=== PATIENT | male | born 1940 | race Caucasian/White ===

== ENCOUNTER 2018-10-14 07:28 | Inpatient (IN) | payer MEDICARE, BC ==
[2018-10-09 12:25] LABS: BASOPHILS % (AUTO) 0.4 % (0-1); EOSINOPHILS # (AUTO) 0.2 X10'3 (0-0.9); EOSINOPHILS % (AUTO) 3.3 % (0-6); LYMPHOCYTES # (AUTO) 1.1 X10'3 (1.1-4.8); LYMPHOCYTES % (AUTO) 16.9 % (21-51); MEAN CORPUSCULAR HEMOGLOBIN 32.5 PG (27.0-31.0); MEAN CORPUSCULAR HGB CONC 34.4 g/dL (33.0-36.5); MEAN CORPUSCULAR VOLUME 94.3 FL (78-98); MEAN PLATELET VOLUME 10.4 FL (7.4-10.4); MONOCYTES # (AUTO) 0.6 X10'3 (0-0.9); NEUTROPHILS # (AUTO) 4.5 X10'3 (1.8-7.7); NEUTROPHILS % (AUTO) 70.4 % (42-75); PRE OP HEMATOCRIT 38.4 % (42.0-52.0); PRE OP HEMOGLOBIN 13.2 g/dL (14.0-17.9); PRE OP PLATELET COUNT 161 X10'3 (140-440); RED BLOOD COUNT 4.07 X10'6 (4.70-6.10); RED CELL DISTRIBUTION WIDTH 13.1 % (11.5-14.5)
[2018-10-09 12:35] LABS: HEMOGLOBIN A1C 5.6 % (4.5-6.2)
[2018-10-09 12:42] LABS: ALBUMIN 3.8 G/DL (3.4-5.0); ALBUMIN/GLOBULIN RATIO 1.2 (1.1-1.5); ALKALINE PHOSPHATASE 68 IU/L (46-116); BLOOD UREA NITROGEN 16 MG/DL (7-18); BUN/CREATININE RATIO 16.7 (5.4-32.0); CHLORIDE 106 MMOL/L (99-107); CREATININE 0.96 MG/DL (0.60-1.10); PRE OP ALT 26 U/L (30-65); PRE OP ANION GAP 6 (8-16); PRE OP AST 16 U/L (10-37); PRE OP BILIRUB, TOTAL 0.5 MG/DL (0.0-1.0); PRE OP GLUCOSE 97 MG/DL (70-104); PRE OP POTASSIUM 4.7 MMOL/L (3.4-5.1); PRE OP SODIUM 139 MMOL/L (135-145); eGFR 76 ML/MIN
[2018-10-09 12:45] LABS: PRE OP PROTIME 10.6 SECONDS (9.0-12.0)
[~2018-10-14] VITALS: Ht 177.8 cm; Wt 99.8 kg
[2018-10-14] VITALS (25 sets, daily range): BP systolic 100–164; BP diastolic 44–75
[~2018-10-14 07:28] MED LIST: ASCO500C15 PO; ATEN50TA PO; BUPR150T8 PO; CALC-854 PO; CELE-193 PO; CHOL10002 PO; DONE10TA7 PO; ESOM20CA PO; FISH12002 PO; HYDROmorphone 1 mg/ml syringe IV PRN; MESSAGE TO PHARMACY PO ONE; METF500T20 PO; OXYB5TAB16 PO; SERT50TA PO; SIMV20TA5 PO; TERA5CAP4 PO; [UNRECOGNIZED DRUG - CODE] PO; acetaminophen 325mg tablet PO PRN; bisacodyl 10mg suppository rectal RC PRN; dextrose 50%-water 50ml dispensing syringe IV PRN; dextrose ORAL solution 15 GM/59 ML bottle PO PRN; diphenhydrAMINE 25mg capsule PO PRN; glucagon, human recombinant 1mg kit SUBCUT PRN; insulin Lispro (HumaLOG) vial - multi-dose SQ SCH; magnesium hydroxide 30ml (MOM) UD suspension PO PRN; ondansetron/PF 4mg/2ml inj IV PRN
[2018-10-14] MEDS ORDERED: gabapentin 300mg capsule PO SCH (08:00)
[2018-10-14] MEDS ORDERED: sertraline 50mg tablet PO SCH (08:00)
[2018-10-14] MEDS ORDERED: non-formulary drug (Esomeprazole Magnesium (Nexium) 1 CAP) PO SCH (08:00)
[2018-10-14] MEDS ORDERED: ringers solution, lacted 1,000 ML IV SCH ×2 (08:15→11:07)
[2018-10-14] MEDS ORDERED: famotidine 20mg tablet PO ONE (08:15)
[2018-10-14] MEDS ORDERED: gabapentin 300mg capsule PO ONE (08:15)
[2018-10-14] MEDS ORDERED: metoclopramide 5 mg/ml inj IV ONE (08:15)
[2018-10-14] MEDS ORDERED: celeCOXIB 100mg capsule PO ONE (08:15)
[2018-10-14] MEDS ORDERED: DOCUMENT DATE & TIME OF BETA-BLOCKER PO ONE (08:15)
[2018-10-14] MEDS ORDERED: vancomycin inj 1,500 MG in normal saline 300ml IV soln IV ONE (08:15)
[2018-10-14] MEDS ORDERED: tranexamic acid inj. 1,000 MG in normal saline 100 ML IV ONE (08:15)
[2018-10-14] MEDS ORDERED: cefazolin/dext.iso 2gm/100 ML IV ONE (08:15)
[2018-10-14] MEDS ORDERED: acetaminophen 325mg tablet PO ONE (08:15)
[2018-10-14] MEDS ORDERED: oxyCODONE SR 10mg (sust. release) tab -2 tabs (20mg) PO ONE (08:15)
[2018-10-14] MEDS ORDERED: vancomycin 1,000mg inj ONE (09:43)
[2018-10-14] MEDS ORDERED: cloNIDine hcl/PF 100mcg/ml inj ONE (09:43)
[2018-10-14] MEDS ORDERED: epiNEPHrine 1 mg/ml inj ONE (09:43)
[2018-10-14] MEDS ORDERED: ketorolac trometh. 30mg/ml inj. ONE (09:43)
[2018-10-14] MEDS ORDERED: ROPIVAcaine 0.5% (5mg/ml) 30ml vial ONE ×2 (09:43→10:04)
[2018-10-14] MEDS ORDERED: tetracaine 1% (10mg/ml) pres. free inj. ONE (10:04)
[2018-10-14] MEDS ORDERED: MIDAZolam 1mg/ml 10ml vial ONE (10:06)
[2018-10-14] MEDS ORDERED: fentaNYL/PF 50MCG/1 ML 2ML syringe ONE (10:06)
[2018-10-14] MEDS ORDERED: proCHLORperazine 10 MG/2 ml inj IV PRN (11:10)
[2018-10-14] MEDS ORDERED: morphine 4 MG/ML inj SYRINge IV PRN ×2 (11:10)
[2018-10-14] MEDS ORDERED: meperidine/PF 25mg/ml syringe IV PRN ×3 (11:10)
[2018-10-14] MEDS ORDERED: ondansetron/PF 4mg/2ml inj IV PRN (11:10)
--- NOTE | 2018-10-14 12:20 | NUR ---
ADMITTED TO PACU FROM OR ACCOMPANIED BY ANESTHESIA. INTIAL PHYSICAL ASSESSMENT DONE AND RECORDED. AWAKE AND RESPONSE ON ARRIVE YO PACU, REPORT RECEIVED FROM ANESTHESIA.
[2018-10-14] MEDS: ROPIVAcaine 0.2%/PF PAIN PUMP 550 ML IJ SCH ×2 (12:50→15:07)
--- NOTE | 2018-10-14 13:00 | NUR ---
DR. BOO CONTACTED RE SLOW PROGRESSION OF SPINAL AND COMPLAINTS OF AIR HUNGER. ORDERS RECEIVED, HHN GIVEN BY RESPIRATORY, WITH IMPROVEMENT. PLACED BACK ON NASAL CANNULA AFTER HHN AT 3 L/MIN. SPINAL LEVEL PROGRESSING
[2018-10-14] MEDS ORDERED: ipratropium/albuterol 3ml nebule NEB PRN (14:00)
--- NOTE | 2018-10-14 14:30 | NUR ---
PACU DISCHARGE CRITERIA MET, REPORT GIVEN TO FLOOR. DENIES PAIN OR DISCOMFORT, TRANSFERRED TO ROOM IN STABLE GOOD CONDITION. DR BOO NOTIFIED OF CURRENT STATUS, OK TO TRANSFER TO ROOM. SPINAL LEVEL AT L2 NO COMPLAINTS OF AIR HUNGER, OK TO TRANSFER TO ROOM PER DR. BOO.
[2018-10-14] MEDS ORDERED: tranexamic acid inj. 1,000 MG in normal saline 100ml IV soln 100 ML IV ONE (15:20)
[2018-10-14] MEDS: potassium cl 20mEq in 1/2 NS 1,000 ML IV SCH (15:46)
[2018-10-14] MEDS: cefazolin/dext.iso 2gm/100ml 100 ML IV SCH (15:46)
[2018-10-14] MEDS: oxyCODONE/APAP 10/325mg tablet PO PRN (19:20)
[2018-10-14] MEDS: ascorbic acid 500mg tablet PO SCH (19:20)
[2018-10-14] MEDS: gabapentin 300mg capsule PO SCH (20:45)
[2018-10-14] MEDS: terazosin 5mg capsule PO SCH (20:45)
[2018-10-14] MEDS: donepezil 5mg tablet PO SCH (20:46)
[2018-10-14] MEDS: sennosides 8.6mg tablet PO SCH (20:46)
[2018-10-14] MEDS: atorvastatin 10mg tablet PO SCH (20:46)
[2018-10-14] MEDS: oxybutynin 5mg tablet PO SCH (20:51)
[2018-10-14] MEDS ORDERED: non-formulary drug (Simvastatin* (Zocor*) 1 TAB) PO SCH (21:00)
[2018-10-14] MEDS ORDERED: non-formulary drug (Donepezil HCl (Aricept) 1 TAB) PO SCH (21:00)
[2018-10-14] MEDS: insulin glargine (Lantus) pen - multi-dose SQ SCH (21:00)
[2018-10-15] MEDS: cefazolin/dext.iso 2gm/100ml 100 ML IV SCH ×2 (00:56→08:09)
[2018-10-15 02:00] VITALS: BP 107/59
[2018-10-15] MEDS: potassium cl 20mEq in 1/2 NS 1,000 ML IV SCH ×4 (02:41→22:53)
[2018-10-15] MEDS: oxyCODONE/APAP 10/325mg tablet PO PRN ×4 (05:31→21:34)
--- NOTE | 2018-10-15 05:36 | NUR ---
F/C D/C'D PER PROTOCOL. PT TOLERATED WELL.
[2018-10-15 05:38] LABS: BASOPHILS % (AUTO) 0.3 % (0-1); EOSINOPHILS # (AUTO) 0.3 X10'3 (0-0.9); EOSINOPHILS % (AUTO) 4.1 % (0-6); HEMATOCRIT 30.8 % (42.0-52.0); HEMOGLOBIN 10.6 g/dl (14.0-17.9); LYMPHOCYTES # (AUTO) 0.7 X10'3 (1.1-4.8); LYMPHOCYTES % (AUTO) 9.9 % (21-51); MEAN CORPUSCULAR HEMOGLOBIN 32.8 PG (27.0-31.0); MEAN CORPUSCULAR HGB CONC 34.4 g/dL (33.0-36.5); MEAN CORPUSCULAR VOLUME 95.3 FL (78-98); MEAN PLATELET VOLUME 10.8 FL (7.4-10.4); MONOCYTES # (AUTO) 0.8 X10'3 (0-0.9); MONOCYTES % (AUTO) 10.9 % (2-12); NEUTROPHILS # (AUTO) 5.5 X10'3 (1.8-7.7); NEUTROPHILS % (AUTO) 74.8 % (42-75); PLATELET COUNT 115 X10'3 (140-440); RED BLOOD COUNT 3.23 X10'6 (4.70-6.10); RED CELL DISTRIBUTION WIDTH 12.9 % (11.5-14.5); WHITE BLOOD COUNT 7.4 X10'3 (4.5-11.0)
[2018-10-15 05:45] LABS: ANION GAP 6 (8-16); CHLORIDE 107 MMOL/L (99-107); POTASSIUM 4.5 MMOL/L (3.5-5.1); SODIUM 140 MMOL/L (135-145); TOTAL CARBON DIOXIDE 27.1 MMOL/L (24-32)
[2018-10-15 06:00] VITALS: BP 133/56
--- NOTE | 2018-10-15 06:07 | NUR ---
REPORT GIVEN TO AMRIK GUZMAN.
--- NOTE | 2018-10-15 06:20 | NUR ---
Patient in room ORTH[facility] 4024. I have received report from Marga ROWLEY and had the opportunity to ask questions and assume patient care.
[2018-10-15] MEDS: oxybutynin 5mg tablet PO SCH ×3 (08:04→21:25)
[2018-10-15] MEDS: gabapentin 300mg capsule PO SCH ×3 (08:05→21:27)
[2018-10-15] MEDS: pantoprazole 40mg Tablet.DR PO SCH (08:05)
[2018-10-15] MEDS: multivitamins, therapeutics tablet PO SCH (08:05)
[2018-10-15] MEDS: buPROPion SR 150mg tablet PO SCH (08:05)
[2018-10-15] MEDS: ascorbic acid 500mg tablet PO SCH ×2 (08:05→21:31)
[2018-10-15] MEDS: aspirin 325mg tablet PO SCH (08:06)
[2018-10-15] MEDS: sertraline 50mg tablet PO SCH (08:06)
[2018-10-15] MEDS: atenolol 50mg tablet PO SCH (08:06)
[2018-10-15 09:11] LABS: LARGE PLATELETS FEW; PLATELET ESTIMATE DECREASED
[2018-10-15 10:00] VITALS: BP 130/47
--- NOTE | 2018-10-15 10:53 | NUR ---
Joint replacement consult: Pt/SO seen by GEORGES for written/verbal high protein ed. RD reviewed high protein needs for wound healing, immune strength, high protein foods, and protein supplementation options. RD contact information provided in case of further questions. Pt declines additional proteins at this time. Will continue to monitor. Addendum: 10/15/18 at [address] Amended: Links added.
[2018-10-15 18:00] VITALS: BP 139/56
--- NOTE | 2018-10-15 18:12 | NUR ---
Problems reprioritized. Patient report given, questions answered & plan of care reviewed with Marga ROWLEY.
[2018-10-15] MEDS: insulin glargine (Lantus) pen - multi-dose SQ SCH (21:00)
[2018-10-15] MEDS: terazosin 5mg capsule PO SCH (21:25)
[2018-10-15] MEDS: sennosides 8.6mg tablet PO SCH (21:25)
[2018-10-15] MEDS: donepezil 5mg tablet PO SCH (21:25)
[2018-10-15] MEDS: atorvastatin 10mg tablet PO SCH (21:25)
[2018-10-15] MEDS: celeCOXIB 100mg capsule PO SCH (21:34)
[2018-10-15 22:00] VITALS: BP 156/62
[2018-10-16] MEDS: oxyCODONE/APAP 10/325mg tablet PO PRN ×3 (05:25→22:28)
[2018-10-16 05:58] LABS: BASOPHILS % (AUTO) 0.1 % (0-1); EOSINOPHILS # (AUTO) 0.4 X10'3 (0-0.9); EOSINOPHILS % (AUTO) 5.5 % (0-6); HEMATOCRIT 33.5 % (42.0-52.0); HEMOGLOBIN 11.6 g/dl (14.0-17.9); LYMPHOCYTES # (AUTO) 0.7 X10'3 (1.1-4.8); MEAN CORPUSCULAR HEMOGLOBIN 32.4 PG (27.0-31.0); MEAN CORPUSCULAR HGB CONC 34.5 g/dL (33.0-36.5); MEAN CORPUSCULAR VOLUME 93.9 FL (78-98); MEAN PLATELET VOLUME 10.2 FL (7.4-10.4); MONOCYTES # (AUTO) 0.9 X10'3 (0-0.9); MONOCYTES % (AUTO) 12.5 % (2-12); NEUTROPHILS % (AUTO) 71.9 % (42-75); PLATELET COUNT 129 X10'3 (140-440); RED BLOOD COUNT 3.57 X10'6 (4.70-6.10); RED CELL DISTRIBUTION WIDTH 13.1 % (11.5-14.5)
[2018-10-16 06:00] VITALS: BP 158/65
--- NOTE | 2018-10-16 06:25 | NUR ---
Patient in room ORTHO 4024. I have received report from Marga and had the opportunity to ask questions and assume patient care.
--- NOTE | 2018-10-16 06:28 | NUR ---
Report given to arthur Moreno.
[2018-10-16] MEDS: pantoprazole 40mg Tablet.DR PO SCH (08:50)
[2018-10-16] MEDS: oxybutynin 5mg tablet PO SCH ×3 (08:51→19:59)
[2018-10-16] MEDS: celeCOXIB 100mg capsule PO SCH ×2 (08:51→19:58)
[2018-10-16] MEDS: gabapentin 300mg capsule PO SCH ×3 (08:51→19:59)
[2018-10-16] MEDS: buPROPion SR 150mg tablet PO SCH (08:52)
[2018-10-16] MEDS: atenolol 50mg tablet PO SCH (08:52)
[2018-10-16] MEDS: ascorbic acid 500mg tablet PO SCH ×2 (08:52→19:58)
[2018-10-16] MEDS: multivitamins, therapeutics tablet PO SCH (08:52)
[2018-10-16] MEDS: aspirin 325mg tablet PO SCH (08:53)
[2018-10-16] MEDS: sertraline 50mg tablet PO SCH (08:53)
[2018-10-16 10:41] VITALS: BP 107/53
[2018-10-16] MEDS: ROPIVAcaine 0.2%/PF PAIN PUMP 550 ML IJ SCH (11:07)
[2018-10-16 18:00] VITALS: BP 143/56
--- NOTE | 2018-10-16 18:00 | NUR ---
Patient in room ORTHO 4024. I have received report from AMRIK Moreno and had the opportunity to ask questions and assume patient care.
--- NOTE | 2018-10-16 18:03 | NUR ---
Problems reprioritized. Patient report given, questions answered & plan of care reviewed with Linda.
[2018-10-16] MEDS: donepezil 5mg tablet PO SCH (19:58)
[2018-10-16] MEDS: atorvastatin 10mg tablet PO SCH (19:59)
[2018-10-16] MEDS: sennosides 8.6mg tablet PO SCH (19:59)
[2018-10-16] MEDS: terazosin 5mg capsule PO SCH (19:59)
[2018-10-16 20:02] VITALS: BP 158/70
[2018-10-16] MEDS: insulin glargine (Lantus) pen - multi-dose SQ SCH (21:00)
[2018-10-16 22:00] VITALS: BP 120/48
[2018-10-17] MEDS: oxyCODONE/APAP 10/325mg tablet PO PRN ×2 (05:20→10:41)
[2018-10-17 06:00] VITALS: BP 149/69
--- NOTE | 2018-10-17 06:00 | NUR ---
Patient in room ORTHO 4024. I have received report from Linda ROWLEY and had the opportunity to ask questions and assume patient care.
[2018-10-17 06:15] LABS: BASOPHILS % (AUTO) 0.1 % (0-1); EOSINOPHILS # (AUTO) 0.4 X10'3 (0-0.9); EOSINOPHILS % (AUTO) 5.2 % (0-6); HEMATOCRIT 32.2 % (42.0-52.0); LYMPHOCYTES # (AUTO) 0.7 X10'3 (1.1-4.8); LYMPHOCYTES % (AUTO) 8.8 % (21-51); MEAN CORPUSCULAR HEMOGLOBIN 32.6 PG (27.0-31.0); MEAN CORPUSCULAR HGB CONC 34.3 g/dL (33.0-36.5); MEAN CORPUSCULAR VOLUME 94.9 FL (78-98); MEAN PLATELET VOLUME 10.3 FL (7.4-10.4); MONOCYTES # (AUTO) 0.9 X10'3 (0-0.9); MONOCYTES % (AUTO) 11.3 % (2-12); NEUTROPHILS % (AUTO) 74.6 % (42-75); PLATELET COUNT 133 X10'3 (140-440); RED BLOOD COUNT 3.39 X10'6 (4.70-6.10); RED CELL DISTRIBUTION WIDTH 13.2 % (11.5-14.5)
--- NOTE | 2018-10-17 06:30 | NUR ---
Problems reprioritized. Patient report given, questions answered & plan of care reviewed with AMRIK Mark.
[2018-10-17] MEDS: oxybutynin 5mg tablet PO SCH (07:43)
[2018-10-17] MEDS: aspirin 325mg tablet PO SCH (07:43)
[2018-10-17] MEDS: atenolol 50mg tablet PO SCH (07:45)
[2018-10-17] MEDS: pantoprazole 40mg Tablet.DR PO SCH (07:45)
[2018-10-17] MEDS: buPROPion SR 150mg tablet PO SCH (07:45)
[2018-10-17] MEDS: gabapentin 300mg capsule PO SCH (07:45)
[2018-10-17] MEDS: ascorbic acid 500mg tablet PO SCH (07:45)
[2018-10-17] MEDS: multivitamins, therapeutics tablet PO SCH (07:45)
[2018-10-17] MEDS: celeCOXIB 100mg capsule PO SCH (07:45)
[2018-10-17] MEDS: sertraline 50mg tablet PO SCH (07:46)
[2018-10-17 10:00] VITALS: BP 126/51
--- NOTE | 2018-10-17 10:46 | NUR ---
Pt on-Q pump removed. Pt tolerated removal well.
--- NOTE | 2018-10-17 12:00 | NUR ---
Pt DC home with spouse in personal vehicle.
--- NOTE | 2018-10-17 12:00 | NUR ---
I AGREE WITH MY PRECEPTEE DAYANARA ROWLEYFLEXO PRESS OPERATOR.
== END 2018-10-17 12:15 | disposition home or self-care (01) | DRG 470 ==
LOC: PAS IN 07:28 → EDSTATUS 10:00 → ORTHO 4S 14:52
PROVIDERS: ADMIT Orthopaedic Surgery; ATTEND Orthopaedic Surgery
PROC: 5A09357 Assistance with Respiratory Ventilation, Less than 24 Consecutive Hours, Continuous Positive Airway Pressure (ICD-10-PCS; 2018-10-14)
PROC: 3E0T3BZ Introduction of Anesthetic Agent into Peripheral Nerves and Plexi, Percutaneous Approach (ICD-10-PCS; 2018-10-14)
PROC: 0SRC069 Replacement of Right Knee Joint with Oxidized Zirconium on Polyethylene Synthetic Substitute, Cemented, Open Approach (ICD-10-PCS; principal; 2018-10-14 10:03)
DX: M17.11 Unilateral primary osteoarthritis, right knee (principal); D62 Acute posthemorrhagic anemia; E11.9 Type 2 diabetes mellitus without complications; E78.5 Hyperlipidemia, unspecified; E66.9 Obesity, unspecified; K21.9 Gastro-esophageal reflux disease without esophagitis; N40.0 Benign prostatic hyperplasia without lower urinary tract symptoms; F32.9 Major depressive disorder, single episode, unspecified; G47.30 Sleep apnea, unspecified; I10 Essential (primary) hypertension; Z87.891 Personal history of nicotine dependence; Z68.31 Body mass index [BMI] 31.0-31.9, adult; Z82.49 Family history of ischemic heart disease and other diseases of the circulatory system; Z80.9 Family history of malignant neoplasm, unspecified; Z79.899 Other long term (current) drug therapy; Z79.84 Long term (current) use of oral hypoglycemic drugs
CPT/HCPCS: 36415; 71046; 73560; 80051; 80053; 82948; 83036; 85025; 85610; 85730; 86885; 86900; 86901; 87081; 94640; 94760; 97110; 97116; 97162; 97530; A4215; A4615; A6449; A6454; A7000; C1713; C1758; C1776; G0378; J0171; J0735; J1170; J1815; J1885; J2250; J2765; J2795; J3010; J3370; J3480; J7120; Q0163